=== PATIENT | female | born 1940 | race Caucasian/White ===

== ENCOUNTER 2019-06-28 18:44 | Inpatient (IN) | payer MEDICARE, BC ==
[~2019-06-28] VITALS: Ht 162.6 cm; Wt 72.6 kg
--- NOTE | 2019-06-28 19:16 | NUR ---
BACK FROM CT
[2019-06-28 20:38] LABS: BASOPHILS % (AUTO) 0.2 % (0.0-2.0); EOSINOPHILS % (AUTO) 1.9 % (0.0-6.0); HEMATOCRIT 40 % (33-45); HEMOGLOBIN 13.4 g/dL (11.5-14.8); LYMPHOCYTES # (AUTO) 1.1 /CMM (0.8-4.8); LYMPHOCYTES % (AUTO) 20.9 % (20.0-44.0); MEAN CORPUSCULAR HGB CONC 34 g/dl (31.0-36.0); MEAN CORPUSCULAR VOLUME 96 fL (82-100); MONOCYTES # (AUTO) 0.4 /CMM (0.1-1.30); NEUTROPHILS # (AUTO) 3.7 /CMM (1.8-8.9); PLATELET COUNT (AUTO) 250 /CMM (150-450); RED BLOOD CELL COUNT(AUTO) 4.17 MIL/uL (4.0-5.2); WHITE BLOOD COUNT (AUTO) 5.3 K/uL (4.3-11.0)
--- NOTE | 2019-06-28 20:39 | NUR ---
CALLED [facility] [employer] FOR TELE BED
[2019-06-28 20:47] LABS: CALCIUM, SERUM 9.3 mg/dL (8.5-10.1); CREATININE 0.6 mg/dL (0.6-1.3); POTASSIUM 3.8 mmol/L (3.5-5.1)
--- NOTE | 2019-06-28 21:14 | NUR ---
called [employer]. product responsibility liaison was paged.
--- NOTE | 2019-06-28 21:57 | NUR ---
REPORT GIVEN TO ELIGIO. PT DOES NOT RECALL THE LIST OF HER HOME MEDS
--- NOTE | 2019-06-28 22:09 | NUR ---
PT WAS TRANSFERRED TO [facility]*1 UNDER ACLS
--- NOTE | 2019-06-28 22:15 | NUR ---
RECEIVED PATIENT FROM ED VIA GURNEY IN STABLE CONDITION. PATIENT AWAKE, A/O X4, AND ABLE TO VERBALIZED NEEDS. NO C/O PAIN OR DISCOMFORT. NOTED WITH RIGHT EYE SWELLING AND BRUISING WITH RIGHT EYEBROW SWELLING. WOUND CARE RENDERED AND TOLERATED WELL, NO ACTIVE BLEEDING NOTED. LAC#18 GAUGE PERIPHERAL LINE INTACT AND PATENT. ENCOURAGED USE OF CALL LIGHT FOR ASSISTANCE AND VERBALIZED/DEMONSTRATED GOOD UNDERSTANDING. BED IN LOW LOCK SETTING WITH BED ALARM ON AND FUNCTIONING. ROOM FREE OF CLUTTER AND BELONGINGS KEPT NEAR BEDSIDE. Addendum: 06/28/19 at 2316 by ADITYA ESPINOZA RN CORRECTION RIGHT EYEBROW ABRASION
[2019-06-28] MEDS ORDERED: ROPI0.252 GT (22:39)
[2019-06-28 22:40] VITALS: BP 129/68
[2019-06-28] MEDS ORDERED: FURO-145 PO (22:40)
[2019-06-28] MEDS ORDERED: ONDANSETRON HCL/PF 4 MG/2 ML VIAL IVP PRN (23:00)
[2019-06-28] MEDS ORDERED: Z GUARD REMEDY 2 OZ OINT TP PRN (23:00)
[2019-06-28] MEDS ORDERED: MAG HYDROX/AL HYDROX/SIMETH 30 ML UDC PO PRN (23:00)
[2019-06-28] MEDS ORDERED: MAGNESIUM HYDROXIDE 30 ML UDC PO PRN (23:00)
[2019-06-28] MEDS ORDERED: ACETAMINOPHEN 325 MG TABLET PO PRN (23:00)
[2019-06-28] MEDS: IV NS 0.9% 1,000 ML IV PRN (23:51)
[2019-06-28] MEDS: MORPHINE SULFATE INJ 2 MG/ML DISP.SYRIN IV PRN (23:51)
[2019-06-29] VITALS: BP 124/66
[2019-06-29] MEDS: ZOLPIDEM TARTRATE 5 MG TABLET PO PRN ×2 (00:38→20:56)
[2019-06-29 03:06] LABS: APPEARANCE,URINE CLEAR (CLEAR); BILIRUBIN,URINE NEGATIVE (NEGATIVE); BLOOD, URINE NEGATIVE Ery/uL (NEGATIVE); COLOR,URINE YELLOW (YELLOW); KETONES,URINE NEGATIVE (NEGATIVE); LEUKOCYTE ESTERASE ,URINE NEGATIVE (NEGATIVE); NITRITE, URINE NEGATIVE (NEGATIVE); PROTEIN,URINE NEGATIVE (NEGATIVE); UGLUCOSE NEGATIVE (NEGATIVE); UROBILINOGEN,URINE 0.2 EU/dL (0.2)
[2019-06-29 04:22] VITALS: BP 132/68
[2019-06-29 06:39] LABS: BASOPHILS % (AUTO) 0.5 % (0.0-2.0); EOSINOPHILS % (AUTO) 1.4 % (0.0-6.0); HEMATOCRIT 39 % (33-45); LYMPHOCYTES % (AUTO) 17.4 % (20.0-44.0); MEAN CORPUSCULAR HGB CONC 33 g/dl (31.0-36.0); MEAN CORPUSCULAR VOLUME 96 fL (82-100); MONOCYTES # (AUTO) 0.5 /CMM (0.1-1.30); MONOCYTES % (AUTO) 7.9 % (2.0-12.0); NEUTROPHILS # (AUTO) 4.2 /CMM (1.8-8.9); NEUTROPHILS % (AUTO) 72.8 % (43.0-81.0); PLATELET COUNT (AUTO) 239 /CMM (150-450); RED BLOOD CELL COUNT(AUTO) 4.08 MIL/uL (4.0-5.2); WHITE BLOOD COUNT (AUTO) 5.8 K/uL (4.3-11.0)
[2019-06-29 06:43] LABS: CHOLESTEROL 163 mg/dL (<200); HDL CHOLESTEROL 72 mg/dL (40-60); LDL 73 mg/dL (0-99); THYROID STIMULATING HORMONE 4.692 uIU/mL (0.358-3.74); TRIGLYCERIDES 83 mg/dL (30-150)
[2019-06-29 06:53] LABS: ALANINE AMINOTRANSFERASE 17 U/L (12-78); ALBUMIN 3.5 g/dL (3.4-5.0); ALKALINE PHOSPHATASE 81 U/L (46-116); ASPARTATE AMINOTRANSFERASE 20 U/L (15-37); BILIRUBIN,TOTAL 0.7 mg/dL (0.2-1.0); CALCIUM, SERUM 8.8 mg/dL (8.5-10.1); CARBON DIOXIDE 31 mmol/L (21-32); CHLORIDE 104 mmol/L (98-107); CREATININE 0.5 mg/dL (0.6-1.3); GLUCOSE 87 mg/dL (74-106); MAGNESIUM 1.8 mg/dL (1.8-2.4); PHOSPHORUS 3.6 mg/dL (2.5-4.9); POTASSIUM 4.4 mmol/L (3.5-5.1); SODIUM SERUM 140 mmol/L (136-145); TOTAL PROTEIN, SERUM 6.5 g/dL (6.4-8.2); UREA NITROGEN, BLOOD 10 mg/dL (7-18)
--- NOTE | 2019-06-29 06:55 | NUR ---
SLAUGHTERER RELIGIOUS RITUAL NOTES PATIENT ASLEEP IN BED WITH NO DISTRESS NOTED. CALL LIGHT WITHIN REACH. NO FURTHER C/O PAIN OR DISCOMFORT. NO CHANGES IN LOC. PERIPHERAL LINE INTACT AND PATENT. BED IN LOW LOCK SETTING. BELONGINGS NEAR BEDSIDE. BED ALARM ON AND FUNCTIONING PROPERLY. WILL ENDORSE TO ONCOMING SHIFT.
--- NOTE | 2019-06-29 07:30 | NUR ---
ms rn received on bed, awake,alert,oriented x3,not in any form of distress, respirations even and unlabored,no sob noted, lungs are clear,abdomen soft,positive bowel sounds,denies pain at this time.s/p fall w/ right face swollen and bruise, denies pain at this time, all needs attended.
[2019-06-29 08:00] VITALS: BP 152/64
--- NOTE | 2019-06-29 08:30 | NUR ---
ms rn was seen by dr. zena howe/ orders made and carried out.
--- NOTE | 2019-06-29 09:30 | NUR ---
ms ryan breakfast served,due meds given,tolerated well.
[2019-06-29] MEDS: GABAPENTIN 100 MG CAPSULE PO SCH ×3 (09:41→18:36)
--- NOTE | 2019-06-29 11:47 | NUR ---
WOUND CARE CONSULT: PT PRESENTS AMBULATORY AND CONTINENT WITH LARGE AREA OF SWELLING AND DISCOLORATION TO RT SIDE OF FACE AND AROUND RT EYE WITH RT EYEBROW CLOSED LACERATION (STERI STRIPS), BRUISING TO BUTTOCKS AND REDNESS WITH EDEMA TO LEFT LOWER LEG, PRESENT ON ADMISSION. RN AND TRANSFORM[employer] SUPERVISOR NOTIFIED OF LEFT LOWER LEG REDNESS AND EDEMA WHICH WILL BE DISCUSSED WITH MD. DEFER TO MD FOR FACIAL DISCOLORATION/EDEMA AND LOWER LEG. LEGS ELEVATED. WILL SEE PRN. CURRENT KATHLEEN SCORE IS 18. Addendum: 06/29/19 at 1149 by SONIA HALL WNDNU Amended: Links added.
--- NOTE | 2019-06-29 13:00 | NUR ---
ms rn complain of bilateral legs pain, paged dr. freitas w/ orders made and carried out.
[2019-06-29] MEDS: HYDROCODONE/APAP 5/325MG 1 EACH TABLET PO PRN (15:46)
[2019-06-29 16:00] VITALS: BP_SYST 137; BP_SYST 143; BP_DIAS 64; BP_DIAS 74
--- NOTE | 2019-06-29 16:30 | NUR ---
ms shelby called donaldo for bilateral lower leg u/s ,will come to do later at 6pm.
--- NOTE | 2019-06-29 17:48 | NUR ---
ms rn on bed, no distress noted.
[2019-06-29 20:00] VITALS: BP 135/77
[2019-06-29] MEDS: IV NS 0.9% 1,000 ML IV PRN (21:01)
[2019-06-29] MEDS: MORPHINE SULFATE INJ 2 MG/ML DISP.SYRIN IV PRN (22:22)
[2019-06-30] MEDS: HYDROCODONE/APAP 5/325MG 1 EACH TABLET PO PRN ×2 (01:16→05:33)
--- NOTE | 2019-06-30 07:30 | NUR ---
RN MS NOTES PT AWAKE, SITTING IN BED, ALERT AND ORIENTED, NO COMPLAINT AT THIS TIME, RESPIRATIONS NORMAL, CALL LIGHT WITHIN REACH, PLAN OF CARE DISCUSSED WITH PT, VERBALIZED UNDERSTANDING.
[2019-06-30 08:00] VITALS: BP 133/64
[2019-06-30] MEDS: GABAPENTIN 100 MG CAPSULE PO SCH (08:27)
[2019-06-30] MEDS ORDERED: GABA-534 PO (09:10)
[2019-06-30] MEDS ORDERED: SULF1TAB48 PO (09:10)
--- NOTE | 2019-06-30 10:55 | NUR ---
RN MS NOTES PT AWAKE, ALERT AND ORIENTED, SITTING ON HER CHAIR, DENIES PAIN, NOT IN DISTRESS, ABLE TO AMBULATE WITH STEADY GAIT INSIDE HER ROOM USING A WALKER, SEEN AND EXAMINED BY DR. FONTENOT, DISCHARGE ORDER GIVEN BY MD, DISCHARGE AND MEDICATION INSTRUCTIONS PROVIDED TO PT, VERBALIZED UNDERSTANDING, PT STATED THAT SHE ALREADY HAS AN APPOINTMENT WITH HER PRIMARY CARE PHYSICIAN, NEW PRESCRIPTIONS ELECTRONICALLY TRANSMITTED TO PT'S OWN PHARMACY, BELONGINGS ACCOUNTED FOR, PT AGREED TO TAKE A PHOTO ONLY OF HER FACE, REFUSED PHOTOS FOR THE OTHER BODY PARTS, STATED THAT IT WAS TAKEN ALREADY BEFORE, EXPLAINED THAT IT IS HOSPITAL PROTOCOL, STILL REFUSED PHOTOS, PICKED UP BY DAUGHTER, ASSISTED PT TO HOSPITAL LOBBY VIA WHEELCHAIR, LEFT WITH ALL BELONGINGS AND CANE, PT PROVIDED WITH NEW WALKER, LEFT WITH DAUGHTER IN STABLE CONDITION.
== END 2019-06-30 11:52 | disposition home health service (06) | DRG 86 ==
LOC: ER 18:44 → TELE 21:34 → MED 06-29 08:17
PROVIDERS: ADMIT Hospitalist; ATTEND Internal Medicine
DX: S06.5X0A Traumatic subdural hemorrhage without loss of consciousness, initial encounter (principal); J98.11 Atelectasis; W01.0XXA Fall on same level from slipping, tripping and stumbling without subsequent striking against object, initial encounter; E89.0 Postprocedural hypothyroidism; I10 Essential (primary) hypertension; S00.11XA Contusion of right eyelid and periocular area, initial encounter; G25.81 Restless legs syndrome; Y93.9 Activity, unspecified; Y92.009 Unspecified place in unspecified non-institutional (private) residence as the place of occurrence of the external cause
CPT/HCPCS: 36415; 70450-TC; 70486-TC; 71045-TC; 80048-TC; 80053-TC; 80061-TC; 80305; 81000-TC; 83735-TC; 84100-TC; 84443-TC; 84484-TC; 85025-TC; 85730-TC; 87081-TC; 87086-TC; 93970-TC; 97116-TC; 97530-TC; A6253; G0378; J2270; J7030